=== PATIENT | female | born 1970 | race African-American/Black ===

== ENCOUNTER 2019-10-24 10:37 | Emergency (ER) | payer OTHER ==
[~2019-10-24] VITALS: Ht 172.7 cm; Wt 104.3 kg
[~2019-10-24 10:37] MED LIST: HYDROCODONE-APA1 TA1 PO; ONDANSETRON HCL4 M2 PO; PREDNISONE50 MG PO; PREMARIN0.45 MG PO; PROAIR HFA8.5 GM INH; TESSALON PERLE100 M1 PO; TESSALON PERLE100 MG PO; TRAMADOL 50 MG50 MG PO; ZOFRAN ODT4 MG PO; ZPAK PO
[2019-10-24] MEDS ORDERED: ADIPEX-P37.5 M1 PO (10:52)
[2019-10-24] MEDS ORDERED: NAPROSYN500 MG PO (11:53)
[2019-10-24 12:19] VITALS: BP 169/98
== END 2019-10-24 12:19 | disposition home or self-care (01) ==
LOC: M.ERS 10:37
DX: S93.492A Sprain of other ligament of left ankle, initial encounter (principal); S80.02XA Contusion of left knee, initial encounter; S90.32XA Contusion of left foot, initial encounter; I10 Essential (primary) hypertension; F17.210 Nicotine dependence, cigarettes, uncomplicated; Z90.710 Acquired absence of both cervix and uterus; W01.0XXA Fall on same level from slipping, tripping and stumbling without subsequent striking against object, initial encounter; Y93.89 Activity, other specified; Y92.89 Other specified places as the place of occurrence of the external cause; Y99.8 Other external cause status

== ENCOUNTER 2020-10-06 20:09 | Emergency (ER) | payer OTHER ==
[~2020-10-06] VITALS: Ht 172.7 cm; Wt 106.6 kg
[~2020-10-06 20:09] MED LIST changes: +ADIPEX-P37.5 M1 PO; +NAPROSYN500 MG PO
[2020-10-06] MEDS ORDERED: SUPER THERAVIT1 EACH PO (20:29)
[2020-10-06] MEDS ORDERED: HYDROCODON-ACE1 EAC7 PO (20:51)
[2020-10-06] MEDS ORDERED: MEDROLDOSEPACK PO (20:51)
[2020-10-06] MEDS ORDERED: TORADOL 10 MG T10 MG PO (20:51)
[2020-10-06 21:06] VITALS: BP 158/85
== END 2020-10-06 21:06 | disposition home or self-care (01) ==
LOC: M.ERS 20:09
DX: M25.512 Pain in left shoulder (principal); I10 Essential (primary) hypertension; F17.210 Nicotine dependence, cigarettes, uncomplicated; Z91.040 Latex allergy status; Z90.710 Acquired absence of both cervix and uterus

== ENCOUNTER 2021-01-02 18:41 | Emergency (ER) | payer OTHER ==
[~2021-01-02] VITALS: Ht 172.7 cm; Wt 108.9 kg
[~2021-01-02 18:41] MED LIST changes: +HYDROCODON-ACE1 EAC7 PO; +MEDROLDOSEPACK PO; +SUPER THERAVIT1 EACH PO; +TORADOL 10 MG T10 MG PO
[2021-01-02] MEDS ORDERED: FLEXERIL PO (19:49)
[2021-01-02] MEDS ORDERED: HYDROCODON-ACE1 EAC8 PO (19:49)
[2021-01-02] MEDS ORDERED: MEDROLDOSEPACK PO (19:49)
[2021-01-02] MEDS ORDERED: ZESTRIL10 MG PO (20:11)
[2021-01-02 20:17] VITALS: BP 184/101
== END 2021-01-02 20:17 | disposition home or self-care (01) ==
LOC: M.ERS 18:41
DX: M25.512 Pain in left shoulder (principal); I10 Essential (primary) hypertension; F17.210 Nicotine dependence, cigarettes, uncomplicated; Z90.711 Acquired absence of uterus with remaining cervical stump; Z91.040 Latex allergy status; X50.9XXA Other and unspecified overexertion or strenuous movements or postures, initial encounter; Y93.89 Activity, other specified; Y92.098 Other place in other non-institutional residence as the place of occurrence of the external cause; Y99.8 Other external cause status

== ENCOUNTER → 2021-02-27 | Outpatient (CLI) | payer OTHER ==
[~2021-02-27] MED LIST changes: +FLEXERIL PO; +HYDROCODON-ACE1 EAC8 PO; +ZESTRIL10 MG PO
== END ==
LOC: M.RAD 12:58
PROVIDERS: ATTEND Nurse Practitioner Family
DX: Z12.31 Encounter for screening mammogram for malignant neoplasm of breast (principal)

== ENCOUNTER 2021-08-18 08:19 | Emergency (ER) | payer OTHER ==
[~2021-08-18] VITALS: Ht 172.7 cm; Wt 104.3 kg
[2021-08-18] MEDS ORDERED: HYDROCODON-ACE1 EAC7 PO (09:53)
[2021-08-18] MEDS ORDERED: IBUPROFEN 800800 MG PO (09:53)
[2021-08-18 10:00] VITALS: BP 134/72
== END 2021-08-18 10:01 | disposition home or self-care (01) ==
LOC: M.ERS 08:19
DX: S20.211A Contusion of right front wall of thorax, initial encounter (principal); I10 Essential (primary) hypertension; F17.210 Nicotine dependence, cigarettes, uncomplicated; Z90.710 Acquired absence of both cervix and uterus; Z91.040 Latex allergy status; W06.XXXA Fall from bed, initial encounter; Y93.89 Activity, other specified; Y92.89 Other specified places as the place of occurrence of the external cause; Y99.8 Other external cause status

== ENCOUNTER 2021-08-31 07:28 | Emergency (ER) | payer OTHER ==
[~2021-08-31] VITALS: Ht 172.7 cm; Wt 102.1 kg
[~2021-08-31 07:28] MED LIST changes: +IBUPROFEN 800800 MG PO
[2021-08-31] MEDS ORDERED: NAPROSYN500 MG PO (07:59)
[2021-08-31] MEDS ORDERED: PREDNISONE 20 M20 M1 PO (07:59)
[2021-08-31 08:10] VITALS: BP 158/107
== END 2021-08-31 08:10 | disposition home or self-care (01) ==
LOC: M.ERS 07:28
DX: M25.512 Pain in left shoulder (principal); I10 Essential (primary) hypertension; F17.210 Nicotine dependence, cigarettes, uncomplicated; Z90.710 Acquired absence of both cervix and uterus